=== PATIENT | female | born 1985 | race Caucasian/White ===

== ENCOUNTER → 2020-07-17 | Outpatient (CLI) | payer MEDICAID, MEDICARE ==
[2020-07-17 19:03] LABS: CALCIUM 9.2 mg/dL (8.4-10.5); CARBON DIOXIDE 22.8 mmol/L (20.0-32)
== END | disposition home or self-care (01) ==
LOC: NPLAB 18:43
PROVIDERS: ATTEND Internal Medicine
DX: M86.68 Other chronic osteomyelitis, other site (principal)
CPT/HCPCS: 36415; 80048; 80202